=== PATIENT | female | born 1955 | race Caucasian/White ===

== ENCOUNTER 2022-05-18 13:51 | Emergency (ER) | payer OTHER, MEDICARE ==
[~2022-05-18] VITALS: Ht 162.6 cm; Wt 71.2 kg
[2022-05-18 15:11] VITALS: BP 135/74
[2022-05-18] MEDS ORDERED: AZIT500T2 PO (15:20)
[2022-05-18] MEDS ORDERED: GUAIF10 PO (15:20)
[2022-05-18] MEDS ORDERED: ACET-66 PO (15:20)
[2022-05-18] MEDS ORDERED: ONDA4TAB10 PO (15:20)
== END 2022-05-18 15:31 | disposition home or self-care (01) ==
LOC: EDH 13:51
DX: U07.1 COVID-19 (principal); J45.909 Unspecified asthma, uncomplicated; Z79.899 Other long term (current) drug therapy; Z98.890 Other specified postprocedural states
CPT/HCPCS: 71045; 87635; 87804 ×2; 99284; C9803

== ENCOUNTER 2023-01-26 17:53 | Emergency (ER) | payer OTHER, MEDICARE ==
[~2023-01-26] VITALS: Ht 162.6 cm; Wt 68.0 kg
[~2023-01-26 17:53] MED LIST: ACET-66 PO; AZIT500T2 PO; GUAIF10 PO; ONDA4TAB10 PO
[2023-01-26 18:24] LABS: BASOPHILS % (AUTO) 0.8 % (0.0-5.0); EOSINOPHILS % (AUTO) 3.4 % (0.0-8.0); HEMATOCRIT 36.4 % (36-48); MEAN CORPUSCULAR HEMOGLOBIN 32.1 pg (27.0-33.0); MEAN CORPUSCULAR HGB CONC 32.4 g/dL (32.0-36.0); MEAN CORPUSCULAR VOLUME 98.9 fL (79-99); MONOCYTES % (AUTO) 10.3 % (3.0-13.0); NEUTROPHILS % (AUTO) 66.2 % (40.0-77.0); PLATELET COUNT (AUTO) 337 K/uL (130-400); RED BLOOD CELL COUNT(AUTO) 3.68 MIL/uL (4.00-5.50); WHITE BLOOD COUNT (AUTO) 9.1 K/uL (4.8-10.8)
[2023-01-26 18:34] LABS: CREATININE 0.7 mg/dL (0.5-1.5); POTASSIUM 3.8 mmol/L (3.5-5.1)
[2023-01-26 18:49] LABS: ALBUMIN 3.2 g/dL (3.5-5.0); TOTAL PROTEIN, SERUM 8.1 g/dL (6.0-8.3)
[2023-01-26 18:52] LABS: B-TYPE NATRIURETIC PEPTIDE 84 pg/mL (0-100)
[2023-01-26] MEDS ORDERED: IOHEXOL-350 75 ML VIAL IV ONE (20:08)
[2023-01-26 21:30] VITALS: BP 142/68
[2023-01-26] MEDS ORDERED: CLINDAMYCIN IVPB 600MG/50ML 50 ML IV SCH (21:30)
[2023-01-26] MEDS ORDERED: CLIN-141 PO (21:58)
== END 2023-01-26 22:08 | disposition home or self-care (01) ==
LOC: EDH 17:53
DX: L03.213 Periorbital cellulitis (principal); J45.909 Unspecified asthma, uncomplicated; M10.9 Gout, unspecified; Z90.710 Acquired absence of both cervix and uterus; Z79.2 Long term (current) use of antibiotics; Z79.899 Other long term (current) drug therapy; Z88.0 Allergy status to penicillin
CPT/HCPCS: 99285; 96365; 70481; 84443; 80053; 83880; 85025; 87040 ×2; 83605; 86140; 36415; J3490; Q9967

== ENCOUNTER 2023-07-06 11:21 | Emergency (ER) | payer OTHER, MEDICARE ==
[~2023-07-06] VITALS: Ht 162.6 cm; Wt 66.7 kg
[~2023-07-06 11:21] MED LIST changes: +CLIN-141 PO
[2023-07-06 13:12] LABS: BASOPHILS # (AUTO) 0.07 K/uL (0.00-0.20); BASOPHILS % (AUTO) 0.9 % (0.0-5.0); EOSINOPHILS # (AUTO) 0.59 K/uL (0.00-0.70); EOSINOPHILS % (AUTO) 7.4 % (0.0-8.0); HEMATOCRIT 34.4 % (36-48); IMMATURE GRANULOCYTE ABSOLUTE 0.02 K/uL (0-1); LYMPHOCYTES # (AUTO) 1.6 K/uL (1.0-4.8); LYMPHOCYTES % (AUTO) 19.7 % (21.0-51.0); MEAN CORPUSCULAR HEMOGLOBIN 31.4 pg (27.0-33.0); MEAN CORPUSCULAR HGB CONC 32.3 g/dL (32.0-36.0); MEAN CORPUSCULAR VOLUME 97.5 fL (79-99); MONOCYTES # (AUTO) 0.6 K/uL (0.1-1.0); MONOCYTES % (AUTO) 7.1 % (3.0-13.0); NEUTROPHILS # (AUTO) 5.2 K/uL (1.8-7.7); NEUTROPHILS % (AUTO) 64.6 % (40.0-77.0); PLATELET COUNT (AUTO) 284 K/uL (130-400); RED BLOOD CELL COUNT(AUTO) 3.53 MIL/uL (4.00-5.50); RED CELL DISTRIBUTION WIDTH 12.4 % (11.0-15.5)
[2023-07-06 13:20] LABS: CREATININE 0.5 mg/dL (0.5-1.5); POTASSIUM 3.7 mmol/L (3.5-5.1)
[2023-07-06 13:28] LABS: ALBUMIN 3.1 g/dL (3.5-5.0); BILIRUBIN,TOTAL 0.4 mg/dL (0.2-1.0); TOTAL PROTEIN, SERUM 7.6 g/dL (6.0-8.3)
[2023-07-06] MEDS ORDERED: IOHEXOL 350 MG/ML 100ML INFUS..BTL IV ONE (15:01)
[2023-07-06] MEDS ORDERED: NEO/POLYMYX B SULF/DEXAMETH 3.5 GM TUBE OP SCH (16:30)
[2023-07-06] MEDS ORDERED: NEOMYCIN/POLYMYXIN B/DEXAMETHASONE 5 ML OPHTH SUSP OS SCH (17:00)
[2023-07-06] MEDS ORDERED: VANCOMYCIN KIT 1 GM/250 ML IV.KIT IV SCH (18:30)
[2023-07-06] MEDS ORDERED: ZOSYN 3.375GM +NS 50ML IVPB SCH (18:30)
[2023-07-06] MEDS ORDERED: 0.9%NACL 1000ML 1,000 ML IV SCH (23:00)
[2023-07-06] MEDS ORDERED: ACETAMINOPHEN 325 MG TAB PO ONE (23:30)
[2023-07-07] MEDS ORDERED: ONDANSETRON 4MG INJ IVP PRN
[2023-07-07] MEDS ORDERED: 0.9%NACL 1000ML 1,000 ML IV SCH
[2023-07-07] MEDS ORDERED: MORPHINE 4 MG SYG IVP PRN
[2023-07-07] MEDS ORDERED: PHARMACY COMMUNICATION MISC SCH (00:30)
[2023-07-07] MEDS ORDERED: ZOSYN 3.375GM +NS 50ML IVPB ONE (03:30)
[2023-07-07] MEDS ORDERED: GABA800T9 PO (05:26)
[2023-07-07] MEDS ORDERED: VANCOMYCIN KIT 1 GM/250 ML IV.KIT IV ONE (06:00)
[2023-07-07 07:44] VITALS: BP 106/48; PULSE 55; RESP 17; O2SAT 99
== END 2023-07-07 10:45 | disposition home or self-care (01) ==
LOC: EDH 11:21
DX: H05.012 Cellulitis of left orbit (principal); M19.90 Unspecified osteoarthritis, unspecified site; J45.909 Unspecified asthma, uncomplicated; Z88.0 Allergy status to penicillin
CPT/HCPCS: 99285; 96365; 70481; 96366 ×2; 96361; 96375 ×2; 80053; 85025; 87040 ×2; 83605; 36415; J7030; J2543 ×2; J3370 ×2; Q9967